=== PATIENT | female | born 1960 | race Caucasian/White ===

== ENCOUNTER → 2016-12-12 | Outpatient (CLI) | payer OTHER ==
[~2016-12-12] MED LIST: CIPRO250 M1 PO; HERCEPTIN440 MG/VIA IV; LISINOPRIL20 MG PO; NOLVADEX20 MG PO
== END ==
LOC: LAB 08:32
DX: C50.111 Malignant neoplasm of central portion of right female breast (principal)

== ENCOUNTER → 2017-03-13 | Outpatient (CLI) | payer OTHER ==
[2015-05-30 19:11] VITALS: BP 144/78
== END ==
LOC: LAB 08:28
DX: C50.111 Malignant neoplasm of central portion of right female breast (principal)

== ENCOUNTER → 2017-06-05 | Outpatient (CLI) | payer OTHER ==
[2015-05-30 19:11] VITALS: BP 144/78
== END ==
LOC: LAB 08:41
DX: C50.111 Malignant neoplasm of central portion of right female breast (principal)

== ENCOUNTER → 2017-08-27 | Outpatient (CLI) | payer OTHER ==
[2015-05-30 19:11] VITALS: BP 144/78
[2017-08-27 10:41] LABS: BUN/CREATININE RATIO 17.6 (6.0-26.0); CALCIUM 9.5 mg/dL (8.4-10.2); POTASSIUM 3.9 mmol/L (3.6-5.0); TOTAL BILIRUBIN 0.5 mg/dL (0.2-1.3); TOTAL PROTEIN 6.8 g/dL (6.3-8.2)
[2017-08-27 10:43] LABS: EOS # 0.1 (0.04-0.40); EOS % 1.3 % (1.0-5.0); HEMATOCRIT 40.5 % (37.0-47.0); HEMOGLOBIN 13.1 g/dL (12.5-16.0); LYMPH# 1.2 (1.50-4.00); MEAN CELL VOLUME 86 fl (78-100); MEAN CORPUSCULAR HEMOGLOBIN 28 pg (27-31); MEAN CORPUSCULAR HGB CONC 32 g/dL (33-37); MONO # 0.4 (0.20-0.80); NEU # 3.7 (1.40-6.50); PLATELET COUNT 184 K/mm3 (130-400); RED BLOOD COUNT 4.69 M/mm3 (4.10-5.30); WHITE BLOOD COUNT 5.4 K/mm3 (4.8-10.8)
== END ==
LOC: LAB 10:04
PROVIDERS: Internal Medicine
DX: C50.111 Malignant neoplasm of central portion of right female breast (principal)

== ENCOUNTER → 2017-11-20 | Outpatient (CLI) | payer OTHER ==
[2015-05-30 19:11] VITALS: BP 144/78
[2017-11-20 09:03] LABS: EOS # 0.1 (0.04-0.40); HEMATOCRIT 43.5 % (37.0-47.0); HEMOGLOBIN 13.9 g/dL (12.5-16.0); LYMPH# 1.2 (1.50-4.00); MEAN CELL VOLUME 85 fl (78-100); MEAN CORPUSCULAR HEMOGLOBIN 27 pg (27-31); MEAN CORPUSCULAR HGB CONC 32 g/dL (33-37); MEAN PLATELET VOLUME 9.4 fl (7.4-10.4); MONO # 0.5 (0.20-0.80); NEU # 3.2 (1.40-6.50); PLATELET COUNT 206 K/mm3 (130-400)
[2017-11-20 09:11] LABS: ALBUMIN 4.4 g/dL (3.5-5.0); BUN/CREATININE RATIO 20.7 (6.0-26.0); CALCIUM 9.8 mg/dL (8.4-10.2); TOTAL BILIRUBIN 0.3 mg/dL (0.2-1.3); TOTAL PROTEIN 7.6 g/dL (6.3-8.2)
[2017-11-22 22:57] LABS: CA 27.29 18.2 U/mL (<=38.0)
== END ==
LOC: LAB 08:47
PROVIDERS: Internal Medicine
DX: C50.111 Malignant neoplasm of central portion of right female breast (principal)

== ENCOUNTER → 2018-02-12 | Outpatient (CLI) | payer OTHER ==
[2015-05-30 19:11] VITALS: BP 144/78
[2018-02-12 09:51] LABS: EOS # 0.1 (0.04-0.40); EOS % 1.1 % (1.0-5.0); HEMATOCRIT 41.8 % (37.0-47.0); HEMOGLOBIN 13.6 g/dL (12.5-16.0); LYMPH# 1.2 (1.50-4.00); MEAN CELL VOLUME 86 fl (78-100); MEAN CORPUSCULAR HEMOGLOBIN 28 pg (27-31); MEAN CORPUSCULAR HGB CONC 33 g/dL (33-37); MEAN PLATELET VOLUME 9.7 fl (7.4-10.4); MONO # 0.5 (0.20-0.80); NEU # 2.9 (1.40-6.50); PLATELET COUNT 201 K/mm3 (130-400); RED BLOOD COUNT 4.89 M/mm3 (4.10-5.30); RED CELL DISTRIBUTION WIDTH 13.2 % (11.5-14.5); WHITE BLOOD COUNT 4.6 K/mm3 (4.8-10.8)
[2018-02-12 09:58] LABS: ALBUMIN 4.4 g/dL (3.5-5.0); BUN/CREATININE RATIO 15.6 (6.0-26.0); CALCIUM 9.5 mg/dL (8.4-10.2); TOTAL BILIRUBIN 0.3 mg/dL (0.2-1.3); TOTAL PROTEIN 7.4 g/dL (6.3-8.2)
[2018-02-14 21:49] LABS: CA 27.29 16.2 U/mL (<=38.0)
== END ==
LOC: LAB 09:25
PROVIDERS: Internal Medicine
DX: C50.111 Malignant neoplasm of central portion of right female breast (principal)

== ENCOUNTER → 2018-05-14 | Outpatient (CLI) | payer OTHER ==
[2015-05-30 19:11] VITALS: BP 144/78
[2018-05-14 08:32] LABS: HEMATOCRIT 42.2 % (37.0-47.0); HEMOGLOBIN 13.9 g/dL (12.5-16.0); MEAN CELL VOLUME 86 fl (78-100); MEAN CORPUSCULAR HEMOGLOBIN 28 pg (27-31); MEAN CORPUSCULAR HGB CONC 33 g/dL (33-37); MEAN PLATELET VOLUME 9.9 fl (7.4-10.4); PLATELET COUNT 183 K/mm3 (130-400); RED BLOOD COUNT 4.92 M/mm3 (4.10-5.30); RED CELL DISTRIBUTION WIDTH 13.3 % (11.5-14.5); WHITE BLOOD COUNT 4.9 K/mm3 (4.8-10.8)
[2018-05-14 08:43] LABS: ALBUMIN 4.2 g/dL (3.5-5.0); BUN/CREATININE RATIO 22.5 (6.0-26.0); CALCIUM 9.5 mg/dL (8.4-10.2); POTASSIUM 4.1 mmol/L (3.6-5.0); TOTAL BILIRUBIN 0.5 mg/dL (0.2-1.3)
[2018-05-14 09:05] LABS: NEUTROPHILS 62 % (42-75)
[2018-05-14 09:06] LABS: LYMPHOCYTE 29 % (20-51); MONOCYTE 8 % (3-10)
== END ==
LOC: LAB 08:15
PROVIDERS: Internal Medicine
DX: C50.919 Malignant neoplasm of unspecified site of unspecified female breast (principal)

== ENCOUNTER → 2018-08-06 | Outpatient (CLI) | payer OTHER ==
[2015-05-30 19:11] VITALS: BP 144/78
[2018-08-06 09:25] LABS: EOS # 0.1 (0.04-0.40); EOS % 1.3 % (1.0-5.0); HEMATOCRIT 40.3 % (37.0-47.0); HEMOGLOBIN 13.2 g/dL (12.5-16.0); LYMPH# 1.1 (1.50-4.00); MEAN CELL VOLUME 86 fl (78-100); MEAN CORPUSCULAR HEMOGLOBIN 28 pg (27-31); MEAN CORPUSCULAR HGB CONC 33 g/dL (33-37); MEAN PLATELET VOLUME 9.5 fl (7.4-10.4); MONO # 0.5 (0.20-0.80); NEU # 2.9 (1.40-6.50); PLATELET COUNT 184 K/mm3 (130-400); RED BLOOD COUNT 4.69 M/mm3 (4.10-5.30); RED CELL DISTRIBUTION WIDTH 13.3 % (11.5-14.5); WHITE BLOOD COUNT 4.7 K/mm3 (4.8-10.8)
[2018-08-06 09:32] LABS: ALBUMIN 4.2 g/dL (3.5-5.0); CALCIUM 9.5 mg/dL (8.4-10.2); TOTAL BILIRUBIN 0.5 mg/dL (0.2-1.3); TOTAL PROTEIN 6.9 g/dL (6.3-8.2)
[2018-08-09 13:18] LABS: CA 27.29 14.3 U/mL (<=38.0)
== END ==
LOC: LAB 08:57
PROVIDERS: Internal Medicine
DX: C50.919 Malignant neoplasm of unspecified site of unspecified female breast (principal)

== ENCOUNTER → 2018-12-17 | Outpatient (CLI) | payer OTHER ==
[2015-05-30 19:11] VITALS: BP 144/78
[2018-12-17 09:36] LABS: EOS % 0.6 % (1.0-5.0); HEMATOCRIT 40.6 % (37.0-47.0); LYMPH# 1.3 (1.50-4.00); MEAN CELL VOLUME 86 fl (78-100); MEAN CORPUSCULAR HEMOGLOBIN 27 pg (27-31); MEAN CORPUSCULAR HGB CONC 32 g/dL (33-37); MEAN PLATELET VOLUME 9.9 fl (7.4-10.4); MONO # 0.5 (0.20-0.80); PLATELET COUNT 190 K/mm3 (130-400); RED BLOOD COUNT 4.74 M/mm3 (4.10-5.30); RED CELL DISTRIBUTION WIDTH 13.2 % (11.5-14.5); WHITE BLOOD COUNT 4.9 K/mm3 (4.8-10.8)
[2018-12-17 10:06] LABS: ALBUMIN 4.4 g/dL (3.5-5.0); POTASSIUM 4.1 mmol/L (3.6-5.0); TOTAL BILIRUBIN 0.4 mg/dL (0.2-1.3)
[2018-12-19 21:18] LABS: CA 15-3 14 U/mL (<30)
== END ==
LOC: LAB 09:01
PROVIDERS: Internal Medicine
DX: C50.111 Malignant neoplasm of central portion of right female breast (principal)

== ENCOUNTER → 2019-03-18 | Outpatient (CLI) | payer OTHER ==
[2015-05-30 19:11] VITALS: BP 144/78
[2019-03-18 07:28] LABS: EOS # 0.1 (0.04-0.40); EOS % 2.6 % (1.0-5.0); HEMATOCRIT 40.4 % (37.0-47.0); LYMPH# 1.2 (1.50-4.00); MEAN CELL VOLUME 85 fl (78-100); MEAN CORPUSCULAR HEMOGLOBIN 28 pg (27-31); MEAN CORPUSCULAR HGB CONC 32 g/dL (33-37); MEAN PLATELET VOLUME 9.3 fl (7.4-10.4); MONO # 0.3 (0.20-0.80); NEU # 2.6 (1.40-6.50); PLATELET COUNT 197 K/mm3 (130-400); RED BLOOD COUNT 4.73 M/mm3 (4.10-5.30); RED CELL DISTRIBUTION WIDTH 13.4 % (11.5-14.5); WHITE BLOOD COUNT 4.3 K/mm3 (4.8-10.8)
[2019-03-18 07:45] LABS: CALCIUM 9.8 mg/dL (8.3-10.5); POTASSIUM 3.6 mmol/L (3.5-5.1); TOTAL BILIRUBIN 0.4 mg/dL (0.2-1.2); TOTAL PROTEIN 6.3 g/dL (6.4-8.3)
[2019-03-20 14:33] LABS: CA 27.29 18.5 U/mL (<=38.0)
== END ==
LOC: LAB 07:14
PROVIDERS: Internal Medicine
DX: C50.111 Malignant neoplasm of central portion of right female breast (principal)

== ENCOUNTER → 2019-06-24 | Outpatient (CLI) | payer OTHER ==
[2015-05-30 19:11] VITALS: BP 144/78
[2019-06-24 07:48] LABS: ALBUMIN 4.1 g/dL (3.5-5.0); POTASSIUM 3.8 mmol/L (3.5-5.1)
[2019-06-24 07:49] LABS: CALCIUM 9.7 mg/dL (8.3-10.5); EOS # 0.1 (0.04-0.40); EOS % 1.7 % (1.0-5.0); HEMATOCRIT 39.7 % (37.0-47.0); HEMOGLOBIN 13.3 g/dL (12.5-16.0); LYMPH# 1.1 (1.50-4.00); MEAN CELL VOLUME 85 fl (78-100); MEAN CORPUSCULAR HEMOGLOBIN 28 pg (27-31); MEAN CORPUSCULAR HGB CONC 34 g/dL (33-37); MEAN PLATELET VOLUME 9.7 fl (7.4-10.4); MONO # 0.4 (0.20-0.80); NEU # 2.5 (1.40-6.50); PLATELET COUNT 182 K/mm3 (130-400); RED BLOOD COUNT 4.68 M/mm3 (4.10-5.30); RED CELL DISTRIBUTION WIDTH 13.1 % (11.5-14.5); WHITE BLOOD COUNT 4.2 K/mm3 (4.8-10.8)
[2019-06-24 07:51] LABS: TOTAL PROTEIN 6.7 g/dL (6.4-8.3)
[2019-06-24 07:52] LABS: TOTAL BILIRUBIN 0.4 mg/dL (0.2-1.2)
[2019-06-25 12:21] LABS: CA 15-3 13.6 U/mL (0.0-31.3)
[2019-06-25 14:20] LABS: CA 27.29 14.6 U/mL (<=38.0)
== END ==
LOC: LAB 07:26
PROVIDERS: Internal Medicine
DX: C50.111 Malignant neoplasm of central portion of right female breast (principal)

== ENCOUNTER → 2019-09-26 | Outpatient (CLI) | payer OTHER ==
[2015-05-30 19:11] VITALS: BP 144/78
[2019-09-26 11:04] LABS: BASO # 0.1 (0.02-0.10); EOS # 0.1 (0.04-0.40); EOS % 0.9 % (1.0-5.0); HEMATOCRIT 40.8 % (37.0-47.0); LYMPH# 2.5 (1.50-4.00); MEAN CELL VOLUME 86 fl (78-100); MEAN CORPUSCULAR HEMOGLOBIN 27 pg (27-31); MEAN CORPUSCULAR HGB CONC 32 g/dL (33-37); MEAN PLATELET VOLUME 9.3 fl (7.4-10.4); MONO # 0.6 (0.20-0.80); NEU # 2.1 (1.40-6.50); PLATELET COUNT 192 K/mm3 (130-400); RED BLOOD COUNT 4.76 M/mm3 (4.10-5.30); RED CELL DISTRIBUTION WIDTH 13.8 % (11.5-14.5); WHITE BLOOD COUNT 5.3 K/mm3 (4.8-10.8)
[2019-09-26 11:18] LABS: POTASSIUM 4.1 mmol/L (3.5-5.1)
[2019-09-26 11:19] LABS: CALCIUM 9.4 mg/dL (8.3-10.5)
[2019-09-26 11:20] LABS: TOTAL PROTEIN 6.9 g/dL (6.4-8.3)
[2019-09-26 11:22] LABS: TOTAL BILIRUBIN 0.4 mg/dL (0.2-1.2)
[2019-09-30 10:29] LABS: CA 27.29 19.3 U/mL (<=38.0)
== END ==
LOC: LAB 10:49
PROVIDERS: Internal Medicine
DX: C50.111 Malignant neoplasm of central portion of right female breast (principal)

== ENCOUNTER → 2020-01-09 | Outpatient (CLI) | payer OTHER ==
[2015-05-30 19:11] VITALS: BP 144/78
[2020-01-09 08:42] LABS: EOS # 0.1 (0.04-0.40); EOS % 1.8 % (1.0-5.0); HEMATOCRIT 40.3 % (37.0-47.0); HEMOGLOBIN 12.7 g/dL (12.5-16.0); LYMPH# 1.7 (1.50-4.00); MEAN CELL VOLUME 84 fl (78-100); MEAN CORPUSCULAR HEMOGLOBIN 27 pg (27-31); MEAN CORPUSCULAR HGB CONC 32 g/dL (33-37); MEAN PLATELET VOLUME 9.7 fl (7.4-10.4); MONO # 0.4 (0.20-0.80); NEU # 2.2 (1.40-6.50); PLATELET COUNT 183 K/mm3 (130-400); RED BLOOD COUNT 4.78 M/mm3 (4.10-5.30); RED CELL DISTRIBUTION WIDTH 13.8 % (11.5-14.5); WHITE BLOOD COUNT 4.4 K/mm3 (4.8-10.8)
[2020-01-09 09:01] LABS: ALBUMIN 4.1 g/dL (3.5-5.0)
[2020-01-09 09:03] LABS: CALCIUM 9.6 mg/dL (8.3-10.5)
[2020-01-09 09:04] LABS: TOTAL PROTEIN 6.9 g/dL (6.4-8.3)
[2020-01-09 09:06] LABS: TOTAL BILIRUBIN 0.3 mg/dL (0.2-1.2)
[2020-01-10 04:45] LABS: CA 15-3 11.1 U/mL (0.0-31.3)
== END ==
LOC: LAB 07:39
PROVIDERS: Internal Medicine
DX: C50.111 Malignant neoplasm of central portion of right female breast (principal)

== ENCOUNTER → 2020-04-05 | Outpatient (CLI) | payer OTHER ==
[2015-05-30 19:11] VITALS: BP 144/78
[2020-04-05 16:58] LABS: EOS # 0.1 (0.04-0.40); EOS % 1.3 % (1.0-5.0); HEMATOCRIT 39.1 % (37.0-47.0); HEMOGLOBIN 12.5 g/dL (12.5-16.0); MEAN CELL VOLUME 86 fl (78-100); MEAN CORPUSCULAR HEMOGLOBIN 27 pg (27-31); MEAN CORPUSCULAR HGB CONC 32 g/dL (33-37); MEAN PLATELET VOLUME 9.5 fl (7.4-10.4); MONO # 0.6 (0.20-0.80); NEU # 2.9 (1.40-6.50); PLATELET COUNT 172 K/mm3 (130-400); RED BLOOD COUNT 4.56 M/mm3 (4.10-5.30); RED CELL DISTRIBUTION WIDTH 13.5 % (11.5-14.5); WHITE BLOOD COUNT 5.6 K/mm3 (4.8-10.8)
[2020-04-05 17:12] LABS: ALBUMIN 4.3 g/dL (3.5-5.0)
[2020-04-05 17:13] LABS: POTASSIUM 3.8 mmol/L (3.5-5.1)
[2020-04-05 17:14] LABS: CALCIUM 9.2 mg/dL (8.3-10.5)
[2020-04-05 17:15] LABS: TOTAL PROTEIN 7.2 g/dL (6.4-8.3)
[2020-04-05 17:17] LABS: TOTAL BILIRUBIN 0.2 mg/dL (0.2-1.2)
[2020-04-07 04:40] LABS: CA 15-3 10.5 U/mL (0.0-31.3)
== END ==
LOC: LAB 16:44
PROVIDERS: Internal Medicine
DX: C50.111 Malignant neoplasm of central portion of right female breast (principal)

== ENCOUNTER → 2020-06-28 | Outpatient (CLI) | payer OTHER ==
[2015-05-30 19:11] VITALS: BP 144/78
[2020-06-28 16:56] LABS: EOS # 0.1 (0.04-0.40); EOS % 1.6 % (1.0-5.0); HEMATOCRIT 41.6 % (37.0-47.0); HEMOGLOBIN 13.4 g/dL (12.5-16.0); LYMPH# 2.2 (1.50-4.00); MEAN CELL VOLUME 85 fl (78-100); MEAN CORPUSCULAR HEMOGLOBIN 27 pg (27-31); MEAN CORPUSCULAR HGB CONC 32 g/dL (33-37); MONO # 0.6 (0.20-0.80); NEU # 3.7 (1.40-6.50); PLATELET COUNT 206 K/mm3 (130-400); RED BLOOD COUNT 4.89 M/mm3 (4.10-5.30); RED CELL DISTRIBUTION WIDTH 13.4 % (11.5-14.5); WHITE BLOOD COUNT 6.7 K/mm3 (4.8-10.8)
[2020-06-28 17:12] LABS: ALBUMIN 4.4 g/dL (3.5-5.0)
[2020-06-28 17:13] LABS: POTASSIUM 3.8 mmol/L (3.5-5.1)
[2020-06-28 17:14] LABS: CALCIUM 9.5 mg/dL (8.3-10.5)
[2020-06-28 17:15] LABS: TOTAL PROTEIN 7.1 g/dL (6.4-8.3)
[2020-06-28 17:17] LABS: TOTAL BILIRUBIN 0.2 mg/dL (0.2-1.2)
[2020-06-30 04:38] LABS: CA 15-3 12.8 U/mL (0.0-31.3)
== END ==
LOC: LAB 16:42
PROVIDERS: Internal Medicine
DX: C50.919 Malignant neoplasm of unspecified site of unspecified female breast (principal)

== ENCOUNTER → 2020-09-16 | Outpatient (CLI) | payer OTHER ==
[2015-05-30 19:11] VITALS: BP 144/78
[2020-09-16 16:56] LABS: EOS # 0.1 (0.04-0.40); EOS % 1.2 % (1.0-5.0); HEMATOCRIT 42.3 % (37.0-47.0); HEMOGLOBIN 13.7 g/dL (12.5-16.0); MEAN CELL VOLUME 86 fl (78-100); MEAN CORPUSCULAR HEMOGLOBIN 28 pg (27-31); MEAN CORPUSCULAR HGB CONC 32 g/dL (33-37); MEAN PLATELET VOLUME 9.4 fl (7.4-10.4); MONO # 0.6 (0.20-0.80); NEU # 3.8 (1.40-6.50); PLATELET COUNT 191 K/mm3 (130-400); RED BLOOD COUNT 4.95 M/mm3 (4.10-5.30); RED CELL DISTRIBUTION WIDTH 13.4 % (11.5-14.5); WHITE BLOOD COUNT 6.5 K/mm3 (4.8-10.8)
[2020-09-16 17:08] LABS: ALBUMIN 4.6 g/dL (3.5-5.0); POTASSIUM 3.7 mmol/L (3.5-5.1)
[2020-09-16 17:10] LABS: CALCIUM 9.7 mg/dL (8.3-10.5)
[2020-09-16 17:11] LABS: TOTAL PROTEIN 7.6 g/dL (6.4-8.3)
[2020-09-16 17:13] LABS: TOTAL BILIRUBIN 0.3 mg/dL (0.2-1.2)
[2020-09-18 04:31] LABS: CA 15-3 13.7 U/mL (0.0-31.3)
[2020-09-20 11:18] LABS: CA 27.29 17.6 U/mL (<=38.0)
== END ==
LOC: LAB 16:43
PROVIDERS: Internal Medicine
DX: Z01.89 Encounter for other specified special examinations (principal)

== ENCOUNTER → 2020-12-13 | Outpatient (CLI) | payer OTHER ==
[2015-05-30 19:11] VITALS: BP 144/78
[2020-12-13 17:17] LABS: EOS # 0.1 (0.04-0.40); EOS % 0.9 % (1.0-5.0); HEMATOCRIT 37.7 % (37.0-47.0); HEMOGLOBIN 12.1 g/dL (12.5-16.0); LYMPH# 2.2 (1.50-4.00); MEAN CELL VOLUME 86 fl (78-100); MEAN CORPUSCULAR HEMOGLOBIN 27 pg (27-31); MEAN CORPUSCULAR HGB CONC 32 g/dL (33-37); MEAN PLATELET VOLUME 9.4 fl (7.4-10.4); MONO # 0.5 (0.20-0.80); NEU # 3.1 (1.40-6.50); PLATELET COUNT 210 K/mm3 (130-400); RED BLOOD COUNT 4.41 M/mm3 (4.10-5.30); RED CELL DISTRIBUTION WIDTH 13.3 % (11.5-14.5); WHITE BLOOD COUNT 5.9 K/mm3 (4.8-10.8)
[2020-12-13 17:28] LABS: ALBUMIN 4.2 g/dL (3.5-5.0); POTASSIUM 3.9 mmol/L (3.5-5.1)
[2020-12-13 17:29] LABS: CALCIUM 9.3 mg/dL (8.3-10.5)
[2020-12-13 17:31] LABS: TOTAL PROTEIN 6.7 g/dL (6.4-8.3)
[2020-12-13 17:32] LABS: TOTAL BILIRUBIN 0.2 mg/dL (0.2-1.2)
[2020-12-13 19:07] LABS: PH-URINE 6.5 (5.0 - 8.0); URINE APPEARANCE CLEAR; URINE BILIRUBIN NEGATIVE (NEGATIVE); URINE BLOOD TRACE (NEGATIVE); URINE COLOR YELLOW; URINE GLUCOSE NEGATIVE (NEGATIVE); URINE KETONE NEGATIVE (NEGATIVE); URINE LEUKOCYTE ESTERASE NEGATIVE (NEGATIVE); URINE NITRATE NEGATIVE (NEGATIVE); URINE PROTEIN(semi-quant) NEGATIVE (NEGATIVE); URINE UROBILINOGEN NORMAL (NORMAL)
[2020-12-13 19:08] LABS: URINE WBC 0-1 /hpf (0-3)
[2020-12-14 22:34] LABS: ESTRADIOL <10 pg/mL (()); FOLLICLE STIMULATING HORMONE 26.7 mIU/mL (())
[2020-12-15 04:00] LABS: CA 15-3 12.1 U/mL (0.0-31.3)
[2020-12-17 09:55] LABS: CA 27.29 14.5 U/mL (<=38.0)
== END ==
LOC: LAB 16:39
PROVIDERS: Internal Medicine
DX: Z01.812 Encounter for preprocedural laboratory examination (principal); C50.111 Malignant neoplasm of central portion of right female breast

== ENCOUNTER → 2021-03-02 | Outpatient (CLI) | payer OTHER ==
[2015-05-30 19:11] VITALS: BP 144/78
[2021-03-02 13:59] LABS: BASO # 0.02 (0.02-0.10); EOS # 0.05 (0.04-0.40); EOS % 0.9 % (1.0-5.0); HEMATOCRIT 39.7 % (37.0-47.0); HEMOGLOBIN 13.1 g/dL (12.5-16.0); LYMPH# 1.73 (1.50-4.00); MEAN CELL VOLUME 84 fl (78-100); MEAN CORPUSCULAR HEMOGLOBIN 28 pg (27-31); MEAN CORPUSCULAR HGB CONC 33 g/dL (33-37); MEAN PLATELET VOLUME 9.4 fl (7.4-10.4); MONO # 0.46 (0.20-0.80); NEU # 3.51 (1.40-6.50); PLATELET COUNT 195 K/mm3 (130-400); RED BLOOD COUNT 4.74 M/mm3 (4.10-5.30); RED CELL DISTRIBUTION WIDTH 12.9 % (11.5-14.5); WHITE BLOOD COUNT 5.8 K/mm3 (4.8-10.8)
[2021-03-02 14:21] LABS: ALBUMIN 4.3 g/dL (3.5-5.0)
[2021-03-02 14:22] LABS: POTASSIUM 4.1 mmol/L (3.5-5.1)
[2021-03-02 14:23] LABS: CALCIUM 9.4 mg/dL (8.3-10.5)
[2021-03-02 14:26] LABS: TOTAL BILIRUBIN 0.3 mg/dL (0.2-1.2)
[2021-03-03 04:45] LABS: CA 15-3 13.4 U/mL (0.0-31.3)
[2021-03-09 15:41] LABS: CA 27.29 15.1 U/mL (<=38.0)
== END ==
LOC: LAB 13:30
PROVIDERS: Internal Medicine
DX: C50.111 Malignant neoplasm of central portion of right female breast (principal)

== ENCOUNTER → 2021-06-01 | Outpatient (CLI) | payer OTHER ==
[2021-06-01 16:54] LABS: HEMATOCRIT 37.5 % (37.0-47.0); HEMOGLOBIN 12.1 g/dL (12.5-16.0); MEAN CELL VOLUME 85 fl (78-100); MEAN CORPUSCULAR HEMOGLOBIN 27 pg (27-31); MEAN CORPUSCULAR HGB CONC 32 g/dL (33-37); MEAN PLATELET VOLUME 10.2 fl (7.4-10.4); PLATELET COUNT 147 K/mm3 (130-400); RED BLOOD COUNT 4.44 M/mm3 (4.10-5.30); RED CELL DISTRIBUTION WIDTH 12.7 % (11.5-14.5); WHITE BLOOD COUNT 2.2 K/mm3 (4.8-10.8)
[2021-06-01 17:03] LABS: ALBUMIN 3.9 g/dL (3.5-5.0); POTASSIUM 3.6 mmol/L (3.5-5.1)
[2021-06-01 17:04] LABS: CALCIUM 9.3 mg/dL (8.3-10.5)
[2021-06-01 17:05] LABS: TOTAL PROTEIN 6.5 g/dL (6.4-8.3)
[2021-06-01 17:07] LABS: TOTAL BILIRUBIN 0.4 mg/dL (0.2-1.2)
[2021-06-01 18:35] LABS: LYMPHOCYTE 50 % (20-51); MONOCYTE 10 % (3-10); NEUTROPHILS 40 % (42-75)
[2021-06-02 04:41] LABS: CA 15-3 12.4 U/mL (0.0-31.3)
[2021-06-07 12:45] LABS: CA 27.29 15.9 U/mL (<=38.0)
== END ==
LOC: LAB 16:41
PROVIDERS: Internal Medicine
DX: C50.919 Malignant neoplasm of unspecified site of unspecified female breast (principal)

== ENCOUNTER → 2021-07-13 | Outpatient (CLI) | payer OTHER ==
[2021-07-13 13:48] LABS: BASO # 0.02 K/mm3 (0.02-0.10); EOS # 0.11 K/mm3 (0.04-0.40); EOS % 1.6 % (1.0-5.0); HEMOGLOBIN 12.9 g/dL (12.5-16.0); MEAN CELL VOLUME 86 fl (78-100); MEAN CORPUSCULAR HEMOGLOBIN 27 pg (27-31); MEAN CORPUSCULAR HGB CONC 32 g/dL (33-37); MEAN PLATELET VOLUME 9.5 fl (7.4-10.4); MONO # 0.51 K/mm3 (0.20-0.80); NEU # 4.29 K/mm3 (1.40-6.50); PLATELET COUNT 208 K/mm3 (130-400); RED BLOOD COUNT 4.79 M/mm3 (4.10-5.30); RED CELL DISTRIBUTION WIDTH 13.7 % (11.5-14.5); WHITE BLOOD COUNT 6.9 K/mm3 (4.8-10.8)
== END ==
LOC: LAB 13:33
PROVIDERS: Internal Medicine
DX: C50.512 Malignant neoplasm of lower-outer quadrant of left female breast (principal)

== ENCOUNTER → 2021-08-19 | Outpatient (CLI) | payer OTHER ==
[2021-08-19 08:24] LABS: BASO # 0.03 K/mm3 (0.02-0.10); EOS # 0.09 K/mm3 (0.04-0.40); EOS % 1.7 % (1.0-5.0); HEMATOCRIT 43.1 % (37.0-47.0); HEMOGLOBIN 13.5 g/dL (12.5-16.0); MEAN CELL VOLUME 87 fl (78-100); MEAN CORPUSCULAR HEMOGLOBIN 27 pg (27-31); MEAN CORPUSCULAR HGB CONC 31 g/dL (33-37); MEAN PLATELET VOLUME 9.7 fl (7.4-10.4); MONO # 0.41 K/mm3 (0.20-0.80); NEU # 3.13 K/mm3 (1.40-6.50); PLATELET COUNT 194 K/mm3 (130-400); RED BLOOD COUNT 4.97 M/mm3 (4.10-5.30); RED CELL DISTRIBUTION WIDTH 13.7 % (11.5-14.5); WHITE BLOOD COUNT 5.4 K/mm3 (4.8-10.8)
[2021-08-19 08:33] LABS: ALBUMIN 4.5 g/dL (3.5-5.0); POTASSIUM 4.2 mmol/L (3.5-5.1)
[2021-08-19 08:35] LABS: CALCIUM 10.2 mg/dL (8.3-10.5)
[2021-08-19 08:36] LABS: TOTAL PROTEIN 7.2 g/dL (6.4-8.3)
[2021-08-19 08:38] LABS: TOTAL BILIRUBIN 0.5 mg/dL (0.2-1.2)
[2021-08-23 14:51] LABS: CA 27.29 17.1 U/mL (<=38.0)
== END ==
LOC: LAB 08:10
PROVIDERS: Internal Medicine
DX: C50.512 Malignant neoplasm of lower-outer quadrant of left female breast (principal)

== ENCOUNTER → 2021-11-11 | Outpatient (CLI) | payer OTHER ==
[2021-11-11 14:05] LABS: BASO # 0.04 K/mm3 (0.02-0.10); EOS # 0.09 K/mm3 (0.04-0.40); EOS % 1.3 % (1.0-5.0); HEMATOCRIT 42.5 % (37.0-47.0); HEMOGLOBIN 13.6 g/dL (12.5-16.0); LYMPH# 1.74 K/mm3 (1.50-4.00); MEAN CELL VOLUME 84 fl (78-100); MEAN CORPUSCULAR HEMOGLOBIN 27 pg (27-31); MEAN CORPUSCULAR HGB CONC 32 g/dL (33-37); MEAN PLATELET VOLUME 9.4 fl (7.4-10.4); MONO # 0.55 K/mm3 (0.20-0.80); NEU # 4.33 K/mm3 (1.40-6.50); PLATELET COUNT 218 K/mm3 (130-400); RED BLOOD COUNT 5.09 M/mm3 (4.10-5.30); RED CELL DISTRIBUTION WIDTH 13.3 % (11.5-14.5); WHITE BLOOD COUNT 6.8 K/mm3 (4.8-10.8)
[2021-11-11 14:26] LABS: ALBUMIN 4.8 g/dL (3.5-5.0); POTASSIUM 3.8 mmol/L (3.5-5.1)
[2021-11-11 14:27] LABS: CALCIUM 10.2 mg/dL (8.3-10.5)
[2021-11-11 14:29] LABS: TOTAL PROTEIN 7.8 g/dL (6.4-8.3)
[2021-11-11 14:30] LABS: TOTAL BILIRUBIN 0.4 mg/dL (0.2-1.2)
[2021-11-12 04:59] LABS: CA 15-3 16.3 U/mL (0.0-31.3)
[2021-11-16 10:33] LABS: CA 27.29 21.2 U/mL (<=38.0)
== END ==
LOC: LAB 13:52
PROVIDERS: Internal Medicine
DX: C50.919 Malignant neoplasm of unspecified site of unspecified female breast (principal)

== ENCOUNTER → 2022-02-06 | Outpatient (CLI) | payer OTHER ==
[2022-02-06 13:33] LABS: BASO # 0.03 K/mm3 (0.02-0.10); EOS # 0.09 K/mm3 (0.04-0.40); EOS % 1.5 % (1.0-5.0); HEMATOCRIT 41.4 % (37.0-47.0); HEMOGLOBIN 13.3 g/dL (12.5-16.0); LYMPH# 1.69 K/mm3 (1.50-4.00); MEAN CELL VOLUME 84 fl (78-100); MEAN CORPUSCULAR HEMOGLOBIN 27 pg (27-31); MEAN CORPUSCULAR HGB CONC 32 g/dL (33-37); MEAN PLATELET VOLUME 9.4 fl (7.4-10.4); MONO # 0.49 K/mm3 (0.20-0.80); NEU # 3.63 K/mm3 (1.40-6.50); PLATELET COUNT 204 K/mm3 (130-400); RED BLOOD COUNT 4.96 M/mm3 (4.10-5.30); RED CELL DISTRIBUTION WIDTH 12.9 % (11.5-14.5); WHITE BLOOD COUNT 5.9 K/mm3 (4.8-10.8)
[2022-02-06 13:43] LABS: ALBUMIN 4.7 g/dL (3.5-5.0); POTASSIUM 3.9 mmol/L (3.5-5.1)
[2022-02-06 13:44] LABS: CALCIUM 10.3 mg/dL (8.3-10.5)
[2022-02-06 13:45] LABS: TOTAL PROTEIN 7.6 g/dL (6.4-8.3)
[2022-02-06 13:47] LABS: TOTAL BILIRUBIN 0.4 mg/dL (0.2-1.2)
[2022-02-07 04:56] LABS: CA 15-3 11.6 U/mL (0.0-31.3)
[2022-02-08 12:29] LABS: CA 27.29 14.9 U/mL (<=38.0)
== END ==
LOC: LAB 13:16
PROVIDERS: Internal Medicine
DX: C50.111 Malignant neoplasm of central portion of right female breast (principal)

== ENCOUNTER → 2022-05-04 | Outpatient (CLI) | payer OTHER ==
[2022-05-04 13:59] LABS: BASO # 0.03 K/mm3 (0.02-0.10); EOS # 0.19 K/mm3 (0.04-0.40); EOS % 2.9 % (1.0-5.0); HEMATOCRIT 42.3 % (37.0-47.0); HEMOGLOBIN 13.6 g/dL (12.5-16.0); LYMPH# 1.28 K/mm3 (1.50-4.00); MEAN CELL VOLUME 84 fl (78-100); MEAN CORPUSCULAR HEMOGLOBIN 27 pg (27-31); MEAN CORPUSCULAR HGB CONC 32 g/dL (33-37); MEAN PLATELET VOLUME 9.2 fl (7.4-10.4); MONO # 0.38 K/mm3 (0.20-0.80); NEU # 4.62 K/mm3 (1.40-6.50); PLATELET COUNT 205 K/mm3 (130-400); RED BLOOD COUNT 5.05 M/mm3 (4.10-5.30); WHITE BLOOD COUNT 6.5 K/mm3 (4.8-10.8)
[2022-05-04 14:22] LABS: ALBUMIN 4.7 g/dL (3.5-5.0); POTASSIUM 3.8 mmol/L (3.5-5.1)
[2022-05-04 14:23] LABS: CALCIUM 10.5 mg/dL (8.3-10.5)
[2022-05-04 14:25] LABS: TOTAL PROTEIN 7.5 g/dL (6.4-8.3)
[2022-05-04 14:27] LABS: TOTAL BILIRUBIN 0.4 mg/dL (0.2-1.2)
[2022-05-08 10:45] LABS: CA 27.29 16.8 U/mL (<=38.0)
[2022-05-09 03:46] LABS: CA 15-3 16.1 U/mL (0.0-31.3)
== END ==
LOC: LAB 13:46
PROVIDERS: Internal Medicine
DX: C50.111 Malignant neoplasm of central portion of right female breast (principal)

== ENCOUNTER 2022-08-01 14:59 | Outpatient (RCR) | payer OTHER | END 2022-08-30 | disposition still patient (30) | LOC: PT | DX: M51.36 Other intervertebral disc degeneration, lumbar region (principal) ==

== ENCOUNTER → 2022-08-01 | Outpatient (CLI) | payer OTHER ==
[2022-08-01 16:28] LABS: HEMOGLOBIN 12.7 g/dL (12.5-16.0); MEAN CELL VOLUME 83 fl (78-100); MEAN CORPUSCULAR HEMOGLOBIN 27 pg (27-31); MEAN CORPUSCULAR HGB CONC 33 g/dL (33-37); MEAN PLATELET VOLUME 9.7 fl (7.4-10.4); PLATELET COUNT 199 K/mm3 (130-400); RED BLOOD COUNT 4.68 M/mm3 (4.10-5.30); RED CELL DISTRIBUTION WIDTH 13.4 % (11.5-14.5); WHITE BLOOD COUNT 5.7 K/mm3 (4.8-10.8)
[2022-08-01 16:57] LABS: ALBUMIN 4.5 g/dL (3.4-4.8); POTASSIUM 3.7 mmol/L (3.5-5.1)
[2022-08-01 16:59] LABS: CALCIUM 10.1 mg/dL (8.3-10.5)
[2022-08-01 17:00] LABS: TOTAL PROTEIN 7.3 g/dL (6.2-8.1)
[2022-08-01 17:02] LABS: TOTAL BILIRUBIN 0.3 mg/dL (0.2-1.2)
[2022-08-01 18:00] LABS: LYMPHOCYTE 40 % (20-51); MONOCYTE 6 % (3-10); NEUTROPHILS 54 % (42-75)
[2022-08-01 18:01] LABS: OVALOCYTES 1+
[2022-08-04 13:33] LABS: CA 27.29 13.5 U/mL (<=38.0)
== END ==
LOC: LAB 16:06
PROVIDERS: Internal Medicine
DX: C50.111 Malignant neoplasm of central portion of right female breast (principal)

== ENCOUNTER → 2022-10-18 | Outpatient (CLI) | payer OTHER ==
[2022-10-18 10:42] LABS: BASO # 0.02 K/mm3 (0.02-0.10); EOS # 0.05 K/mm3 (0.04-0.40); HEMOGLOBIN 12.7 g/dL (12.5-16.0); LYMPH# 1.55 K/mm3 (1.50-4.00); MEAN CELL VOLUME 84 fl (78-100); MEAN CORPUSCULAR HEMOGLOBIN 27 pg (27-31); MEAN CORPUSCULAR HGB CONC 33 g/dL (33-37); MEAN PLATELET VOLUME 9.7 fl (7.4-10.4); MONO # 0.46 K/mm3 (0.20-0.80); NEU # 3.16 K/mm3 (1.40-6.50); PLATELET COUNT 219 K/mm3 (130-400); RED BLOOD COUNT 4.66 M/mm3 (4.10-5.30); RED CELL DISTRIBUTION WIDTH 13.1 % (11.5-14.5); WHITE BLOOD COUNT 5.3 K/mm3 (4.8-10.8)
[2022-10-18 10:46] LABS: ALBUMIN 4.4 g/dL (3.4-4.8)
[2022-10-18 10:48] LABS: CALCIUM 10.4 mg/dL (8.3-10.5)
[2022-10-18 10:49] LABS: TOTAL PROTEIN 7.1 g/dL (6.2-8.1)
[2022-10-18 10:51] LABS: TOTAL BILIRUBIN 0.4 mg/dL (0.2-1.2)
[2022-10-19 04:15] LABS: CA 15-3 12.8 U/mL (0.0-31.3)
[2022-10-20 13:08] LABS: CA 27.29 15.1 U/mL (<=38.0)
== END ==
LOC: LAB 09:54
PROVIDERS: Internal Medicine
DX: C50.111 Malignant neoplasm of central portion of right female breast (principal)

== ENCOUNTER → 2023-07-30 | Outpatient (CLI) | payer OTHER ==
[2023-07-30 14:01] LABS: BASO # 0.02 K/mm3 (0.02-0.10); EOS # 0.06 K/mm3 (0.04-0.40); HEMATOCRIT 41.2 % (37.0-47.0); HEMOGLOBIN 13.3 g/dL (12.5-16.0); MEAN CELL VOLUME 84 fl (78-100); MEAN CORPUSCULAR HEMOGLOBIN 27 pg (27-31); MEAN CORPUSCULAR HGB CONC 32 g/dL (33-37); MEAN PLATELET VOLUME 9.1 fl (7.4-10.4); MONO # 0.43 K/mm3 (0.20-0.80); NEU # 4.19 K/mm3 (1.40-6.50); PLATELET COUNT 208 K/mm3 (130-400); RED BLOOD COUNT 4.91 M/mm3 (4.10-5.30); RED CELL DISTRIBUTION WIDTH 12.8 % (11.5-14.5); WHITE BLOOD COUNT 6.1 K/mm3 (4.8-10.8)
[2023-07-30 14:21] LABS: ALBUMIN 4.6 g/dL (3.4-4.8)
[2023-07-30 14:22] LABS: CALCIUM 10.2 mg/dL (8.3-10.5)
[2023-07-30 14:24] LABS: TOTAL PROTEIN 7.5 g/dL (6.2-8.1)
[2023-07-30 14:25] LABS: TOTAL BILIRUBIN 0.4 mg/dL (0.2-1.2)
[2023-07-31 06:05] LABS: CA 15-3 14.3 U/mL (0.0-31.3)
== END ==
LOC: LAB 13:47
PROVIDERS: Internal Medicine
DX: C50.111 Malignant neoplasm of central portion of right female breast (principal)

== ENCOUNTER → 2023-10-22 | Outpatient (CLI) | payer OTHER ==
[2023-10-22 13:48] LABS: BASO # 0.02 K/mm3 (0.02-0.10); EOS # 0.07 K/mm3 (0.04-0.40); EOS % 1.3 % (1.0-5.0); HEMATOCRIT 36.7 % (37.0-47.0); HEMOGLOBIN 11.9 g/dL (12.5-16.0); LYMPH# 1.45 K/mm3 (1.50-4.00); MEAN CELL VOLUME 85 fl (78-100); MEAN CORPUSCULAR HEMOGLOBIN 27 pg (27-31); MEAN CORPUSCULAR HGB CONC 32 g/dL (33-37); MEAN PLATELET VOLUME 9.6 fl (7.4-10.4); MONO # 0.49 K/mm3 (0.20-0.80); NEU # 3.48 K/mm3 (1.40-6.50); PLATELET COUNT 196 K/mm3 (130-400); RED BLOOD COUNT 4.34 M/mm3 (4.10-5.30); WHITE BLOOD COUNT 5.5 K/mm3 (4.8-10.8)
[2023-10-22 13:51] LABS: ALBUMIN 4.3 g/dL (3.4-4.8)
[2023-10-22 13:52] LABS: CALCIUM 9.6 mg/dL (8.3-10.5)
[2023-10-22 13:54] LABS: TOTAL PROTEIN 6.5 g/dL (6.2-8.1)
[2023-10-22 13:55] LABS: TOTAL BILIRUBIN 0.3 mg/dL (0.2-1.2)
[2023-10-23 04:58] LABS: CA 15-3 12.5 U/mL (0.0-31.3)
[2023-10-24 08:13] LABS: CA 27.29 <9.0 U/mL (0.0-38.6)
== END ==
LOC: LAB 13:25
PROVIDERS: Internal Medicine
DX: C50.111 Malignant neoplasm of central portion of right female breast (principal)

== ENCOUNTER → 2024-06-30 | Outpatient (CLI) | payer OTHER ==
[2024-06-30 13:44] LABS: BASO # 0.01 K/mm3 (0.02-0.10); EOS # 0.06 K/mm3 (0.04-0.40); HEMATOCRIT 38.6 % (37.0-47.0); HEMOGLOBIN 12.4 g/dL (12.5-16.0); LYMPH# 1.28 K/mm3 (1.50-4.00); MEAN CELL VOLUME 84 fl (78-100); MEAN CORPUSCULAR HEMOGLOBIN 27 pg (27-31); MEAN CORPUSCULAR HGB CONC 32 g/dL (33-37); MEAN PLATELET VOLUME 9.4 fl (7.4-10.4); MONO # 0.51 K/mm3 (0.20-0.80); NEU # 4.26 K/mm3 (1.40-6.50); PLATELET COUNT 228 K/mm3 (130-400); RED BLOOD COUNT 4.59 M/mm3 (4.10-5.30); RED CELL DISTRIBUTION WIDTH 12.9 % (11.5-14.5); WHITE BLOOD COUNT 6.1 K/mm3 (4.8-10.8)
[2024-06-30 13:53] LABS: ALBUMIN 4.5 g/dL (3.4-4.8)
[2024-06-30 13:55] LABS: CALCIUM 10.4 mg/dL (8.3-10.5)
[2024-06-30 13:56] LABS: TOTAL PROTEIN 7.2 g/dL (6.2-8.1)
[2024-06-30 13:58] LABS: TOTAL BILIRUBIN 0.5 mg/dL (0.2-1.2)
[2024-07-02 05:39] LABS: CA 27.29 13.8 U/mL (0.0-38.6)
[2024-07-02 06:38] LABS: CA 15-3 16.9 U/mL (0.0-25.0)
== END ==
LOC: LAB 13:29
PROVIDERS: Internal Medicine
DX: C50.111 Malignant neoplasm of central portion of right female breast (principal)

== ENCOUNTER → 2024-09-25 | Outpatient (CLI) | payer OTHER ==
[2024-09-25 09:34] LABS: BASO # 0.02 K/mm3 (0.02-0.10); EOS # 0.07 K/mm3 (0.04-0.40); EOS % 1.4 % (1.0-5.0); HEMATOCRIT 35.8 % (37.0-47.0); HEMOGLOBIN 12.7 g/dL (12.5-16.0); LYMPH# 1.25 K/mm3 (1.50-4.00); MEAN CELL VOLUME 84 fl (78-100); MEAN CORPUSCULAR HEMOGLOBIN 30 pg (27-31); MEAN CORPUSCULAR HGB CONC 36 g/dL (33-37); MEAN PLATELET VOLUME 10.4 fl (7.4-10.4); MONO # 0.53 K/mm3 (0.20-0.80); NEU # 2.95 K/mm3 (1.40-6.50); PLATELET COUNT 211 K/mm3 (130-400); RED BLOOD COUNT 4.24 M/mm3 (4.10-5.30); RED CELL DISTRIBUTION WIDTH 13.6 % (11.5-14.5); WHITE BLOOD COUNT 4.8 K/mm3 (4.8-10.8)
[2024-09-25 09:35] LABS: ALBUMIN 4.4 g/dL (3.4-4.8)
[2024-09-25 09:37] LABS: CALCIUM 10.1 mg/dL (8.3-10.5)
[2024-09-25 09:40] LABS: TOTAL BILIRUBIN 0.4 mg/dL (0.2-1.2)
[2024-09-27 05:38] LABS: CA 15-3 14.5 U/mL (0.0-25.0)
[2024-09-27 06:37] LABS: CA 27.29 15.3 U/mL (0.0-38.6)
== END ==
LOC: LAB 09:13
PROVIDERS: Internal Medicine
DX: C50.111 Malignant neoplasm of central portion of right female breast (principal)

== ENCOUNTER → 2024-12-19 | Outpatient (CLI) | payer OTHER ==
[2024-12-19 09:19] LABS: BASO # 0.02 K/mm3 (0.02-0.10); EOS # 0.05 K/mm3 (0.04-0.40); EOS % 1.1 % (1.0-5.0); HEMATOCRIT 39.5 % (37.0-47.0); HEMOGLOBIN 12.7 g/dL (12.5-16.0); LYMPH# 1.17 K/mm3 (1.50-4.00); MEAN CELL VOLUME 83 fl (78-100); MEAN CORPUSCULAR HEMOGLOBIN 27 pg (27-31); MEAN CORPUSCULAR HGB CONC 32 g/dL (33-37); MEAN PLATELET VOLUME 9.2 fl (7.4-10.4); MONO # 0.44 K/mm3 (0.20-0.80); NEU # 3.06 K/mm3 (1.40-6.50); PLATELET COUNT 198 K/mm3 (130-400); RED BLOOD COUNT 4.75 M/mm3 (4.10-5.30); RED CELL DISTRIBUTION WIDTH 13.6 % (11.5-14.5); WHITE BLOOD COUNT 4.8 K/mm3 (4.8-10.8)
[2024-12-19 09:20] LABS: ALBUMIN 4.4 g/dL (3.4-4.8)
[2024-12-19 09:22] LABS: CALCIUM 10.1 mg/dL (8.3-10.5)
[2024-12-19 09:23] LABS: TOTAL PROTEIN 7.3 g/dL (6.2-8.1)
[2024-12-19 09:25] LABS: TOTAL BILIRUBIN 0.4 mg/dL (0.2-1.2)
[2024-12-24 06:09] LABS: CA 27.29 15.6 U/mL (0.0-38.6)
== END ==
LOC: LAB 08:53
PROVIDERS: Internal Medicine
DX: C50.111 Malignant neoplasm of central portion of right female breast (principal)